=== PATIENT | male | born 1960 | race Hispanic/Latino ===

== ENCOUNTER 2020-01-10 11:00 | Inpatient (IN) | payer BC ==
[~2020-01-10] VITALS: Ht 185.4 cm; Wt 107.4 kg
[~2020-01-10 11:00] MED LIST: BISO1TAB8 PO
[2020-01-10 16:37] LABS: BASOPHILS % (AUTO) 0.7 % (0.0-5.0); EOSINOPHILS % (AUTO) 4.1 % (0.0-8.0); HEMATOCRIT 45.3 % (42-54); LYMPHOCYTES % (AUTO) 22.2 % (21.0-51.0); MEAN CORPUSCULAR HEMOGLOBIN 32.6 pg (27.0-33.0); MEAN CORPUSCULAR HGB CONC 34.2 g/dL (32.0-36.0); MEAN CORPUSCULAR VOLUME 95.2 fL (79-99); MONOCYTES % (AUTO) 7.6 % (3.0-13.0); NEUTROPHILS % (AUTO) 65.1 % (40.0-77.0); PLATELET COUNT (AUTO) 174 K/uL (130-400); RED BLOOD CELL COUNT(AUTO) 4.76 MIL/uL (4.50-6.20); RED CELL DISTRIBUTION WIDTH 11.5 % (11.0-15.5); WHITE BLOOD COUNT (AUTO) 7.5 K/uL (4.8-10.8)
[2020-01-10 16:39] LABS: APPEARANCE,URINE Clear (CLEAR); BILIRUBIN,URINE Negative (NEGATIVE); COLOR,URINE Yellow (YELLOW); GLUCOSE, URINE (UA) Negative (NEGATIVE); KETONES,URINE Negative (NEGATIVE); LEUKOCYTE ESTERASE ,URINE Negative (NEGATIVE); NITRATE,URINE Negative (NEGATIVE); OCCULT BLOOD,URINE Negative (NEGATIVE); PROTEIN,URINE Negative (NEGATIVE)
[2020-01-10 16:49] LABS: CREATININE 1.2 mg/dL (0.5-1.5); POTASSIUM 3.8 mmol/L (3.5-5.1)
[2020-01-10 16:52] LABS: INR 1.02 (0.85-1.15); PARTIAL THROMBOPLASTIN TIME 28.2 SEC (26.3-35.5)
[2020-01-11 08:35] VITALS: BP 132/65
[2020-01-14] VITALS (22 sets, daily range): BP systolic 113–147; BP diastolic 59–78
[2020-01-14] MEDS: CEFAZOLIN SODIUM 1 GM VIAL IVP SCH ×4 (05:00→20:05)
[2020-01-14] MEDS ORDERED: LACTATED RINGERS 1000ML 1,000 ML IV ONE (07:15)
[2020-01-14] MEDS ORDERED: KETOROLAC TROMETHAMINE 15MG/ML ONE (08:32)
[2020-01-14] MEDS ORDERED: ACETAMINOPHEN EXTRA STRENGTH 500 MG TABLET ONE (08:32)
[2020-01-14] MEDS ORDERED: TRANEXAMIC ACID 1000MG/10ML ONE ×2 (08:33→12:31)
[2020-01-14] MEDS ORDERED: CELECOXIB 200 MG CAP ONE (08:33)
[2020-01-14] MEDS ORDERED: CEFAZOLIN SODIUM 1 GM VIAL ONE (09:22)
[2020-01-14] MEDS ORDERED: LIDOCAINE PF 2% 5ML ABBOJECT ONE (09:41)
[2020-01-14] MEDS ORDERED: SUCCINYLCHOLINE CHLORIDE 20 MG/ML 10 ML VIAL ONE (09:41)
[2020-01-14] MEDS ORDERED: ROCURONIUM 10MG/1ML SYR 10 MG/ML ML ONE (09:41)
[2020-01-14] MEDS ORDERED: PROPOFOL 10 MG/ML 20ML VIAL IV ONE (09:41)
[2020-01-14] MEDS ORDERED: MIDAZOLAM HCL 1 MG/ML 2ML VIAL ONE (09:41)
[2020-01-14] MEDS ORDERED: FENTANYL CITRATE PF 50 MCG/1 ML 2ML VIAL ONE ×2 (09:45→11:33)
[2020-01-14] MEDS ORDERED: EPHEDRINE SULFATE 50 MG/ML AMPULE ONE (10:06)
[2020-01-14] MEDS ORDERED: NEOSTIGMINE 5MG/5ML SYR IV ONE (10:07)
[2020-01-14] MEDS ORDERED: GLYCOPYRROLATE 1 MG/5 ML SYRINGE ONE (10:07)
[2020-01-14] MEDS ORDERED: ONDANSETRON HCL 4 MG/2 ML VIAL ONE (11:49)
[2020-01-14] MEDS ORDERED: CALCIUM CARBONATE 500 MG TABLET PO PRN (12:00)
[2020-01-14] MEDS ORDERED: OXYCODONE HCL 5 MG TAB PO PRN (12:00)
[2020-01-14] MEDS ORDERED: DiphenhydrAMINE HCL 50 MG/ML VIAL IVP PRN (12:00)
[2020-01-14] MEDS ORDERED: POTASSIUM CHLORIDE 10% ELIXIR 20 MEQ/15 ML UDCUP PO PRN (12:00)
[2020-01-14] MEDS ORDERED: POTASSIUM CHLORIDE 20 MEQ ERTAB PO PRN (12:00)
[2020-01-14] MEDS ORDERED: ONDANSETRON HCL 4 MG/2 ML VIAL IVP PRN (12:00)
[2020-01-14] MEDS ORDERED: LIDOCAINE HCL-MPF 1% 2ML VIAL IV PRN (12:00)
[2020-01-14] MEDS ORDERED: TRAMADOL HCL 50 MG TABLET PO PRN (12:00)
[2020-01-14] MEDS ORDERED: POTASSIUM CHLORIDE 20MEQ/100ML 100 ML IV PRN (12:00)
[2020-01-14] MEDS ORDERED: TEMAZEPAM 15 MG CAPSULE PO PRN (12:00)
[2020-01-14] MEDS: SODIUM CHLORIDE 0.9% 1000ML 1,000 ML IV SCH ×2 (12:00→21:22)
[2020-01-14] MEDS: ACETAMINOPHEN EXTRA STRENGTH 500 MG TABLET PO SCH ×2 (12:00→20:05)
[2020-01-14] MEDS ORDERED: FERROUS FUMARATE 324 MG TABLET PO PRN (12:00)
[2020-01-14] MEDS ORDERED: MEPERIDINE-PF 25 MG/ML SYG ONE ×2 (12:40→12:49)
--- NOTE | 2020-01-14 15:00 | NUR ---
DC PLAN VISITED WITH PATIENT. POST SURGICAL STILL HAVING SOME PAIN. BRIEF IA. PATIENT LIVES WITH SPOUSE. INDEPENDENT ABLE TO PERFORM ADL'S. WALKER WITH NO WHEELS AT HOME. OFFERED [facility] REFUSED SAID LAST KNEE WENT TO DR. ALLEN OFFICE FOR THERAPY. WANTS TO DO THAT AGAIN. LEFT MESSAGE FOR DR. ALLEN FOR ORDERS. OFFERED 3 IN 1 CHAIR. EXPLAINED INSURANCE MIGHT NO COVER. OKAY TO USE ANY IN NETWORK DME. WILL SEND REFERRAL TO [facility]. Addendum: 01/14/20 at 1503 by VIRGINIE ANDRES RN CM Amended: Links added.
[2020-01-14] MEDS ORDERED: IPRATROPIUM/ALBUTEROL SULFATE 3 ML SOLUTION IH ONE (18:46)
[2020-01-14] MEDS: CELECOXIB 200 MG CAP PO SCH (20:06)
[2020-01-14] MEDS: FAMOTIDINE 20MG TAB 20 MG TAB PO SCH (20:06)
[2020-01-14] MEDS: PREGABALIN 25 MG CAP PO SCH (20:06)
[2020-01-14] MEDS: ASPIRIN 81MG TAB.CHEW PO SCH (20:07)
[2020-01-14] MEDS: OXYCODONE HCL 5 MG TAB PO PRN (20:13)
[2020-01-14] MEDS: KETOROLAC TROMETHAMINE 15MG/ML IV PRN (21:21)
[2020-01-14] MEDS ORDERED: BENZOCAINE/MENTH/CETYLPYRD CL 1 EACH LOZENGE MM PRN (21:30)
[2020-01-14] MEDS ORDERED: BENZOCAINE/MENTH/CETYLPYRD CL 1 EACH LOZENGE MM ONE (21:36)
[2020-01-14] MEDS: HYDROMORPHONE 1 MG/1 ML AMP IVP PRN ×2 (21:59→23:49)
[2020-01-15 00:28] VITALS: BP 130/68
--- NOTE | 2020-01-15 01:20 | NUR ---
DANGLE PATIENT ASSISTED TO EDGE OF BED TO DANGLE LEGS PER PROTOCOL. PATIENT TOLERATED WELL.
[2020-01-15] MEDS: HYDROMORPHONE 1 MG/1 ML AMP IVP PRN ×2 (02:20→04:46)
[2020-01-15] MEDS: CEFAZOLIN SODIUM 1 GM VIAL IVP SCH ×2 (03:45→03:46)
[2020-01-15] MEDS: ACETAMINOPHEN EXTRA STRENGTH 500 MG TABLET PO SCH ×2 (03:46→11:25)
[2020-01-15] MEDS: OXYCODONE HCL 5 MG TAB PO PRN ×3 (03:54→15:25)
[2020-01-15 04:28] VITALS: BP 106/67
[2020-01-15] MEDS: KETOROLAC TROMETHAMINE 15MG/ML IV PRN (06:11)
[2020-01-15 06:23] LABS: HEMATOCRIT 37.6 % (42-54); MEAN CORPUSCULAR HEMOGLOBIN 31.8 pg (27.0-33.0); MEAN CORPUSCULAR HGB CONC 33.8 g/dL (32.0-36.0); RED CELL DISTRIBUTION WIDTH 11.6 % (11.0-15.5); WHITE BLOOD COUNT (AUTO) 9.3 K/uL (4.8-10.8)
[2020-01-15 06:38] LABS: CREATININE 1.2 mg/dL (0.5-1.5)
[2020-01-15 08:00] VITALS: BP 130/70
[2020-01-15] MEDS: ASPIRIN 81MG TAB.CHEW PO SCH (08:39)
[2020-01-15] MEDS: PREGABALIN 25 MG CAP PO SCH (08:39)
[2020-01-15] MEDS: FAMOTIDINE 20MG TAB 20 MG TAB PO SCH (08:39)
[2020-01-15] MEDS: CELECOXIB 200 MG CAP PO SCH (08:39)
[2020-01-15] MEDS ORDERED: POLYETHYLENE GLYCOL 3350 17 GM POWD.PACK PO SCH (09:00)
[2020-01-15] MEDS ORDERED: TAMSULOSIN HCL 0.4 MG CAP.ER.24H PO SCH (09:00)
[2020-01-15] MEDS ORDERED: BISOPROLOL FUMARATE PO SCH (09:00)
[2020-01-15] MEDS ORDERED: HCTZ PO SCH (09:00)
--- NOTE | 2020-01-15 11:51 | NUR ---
DC PLAN CALLED [facility] SAID THEY RECEIVED PACKET PENDING INSURANCE AUTHORIZATION. PER PATIENT ALREADY HAS STANDARD WALKER. DID NOT WANT HOME HEALTH. DR. ALLEN SAID OKAY FOR PATIENT TO DO OUTPATIENT PT AT HIS OFFICE. CM CALLED OFFICE SAID THEY WILL GET PRE AUTHORIZATION AND CALL PATIENT ONCE APPROVED. Addendum: 01/15/20 at 1154 by VIRGINIE ANDRES RN CM Amended: Links added.
[2020-01-15 11:52] VITALS: BP 137/68
[2020-01-15 16:00] VITALS: BP 150/75
[2020-01-15] MEDS ORDERED: HYDR-4457 PO (18:27)
[2020-01-15] MEDS ORDERED: ASPI-1005 PO (18:27)
--- NOTE | 2020-01-15 18:50 | NUR ---
INSTRUCTIONS DISCHARGE INSTRUCTIONS GIVEN TO PATIENT USING TEACH BACK. F/U APPOINTMENT MADE. NEW PRESCRIPTIONS ELECTRONICALLY SENT TO PATIENT'S PREFERRED PHARMACY. IV REMOVED WITH TIP INTACT. DIRECT PRESSURE APPLIED UNTIL BLEEDING CONTROLLED THEN SITE COVERED WITH GAUZE AND SECURED WITH TAPE. NO QUESTIONS OR CONCERNS VOICED. PENDING RIDE HOME.
[2020-01-17] MEDS ORDERED: BISACODYL 10 MG SUPP.RECT RC PRN (12:00)
== END 2020-01-15 19:20 | disposition home or self-care (01) | DRG 470 ==
LOC: EDSTATUS 11:00 → DAHIP 01-14 06:15 → 3DH 01-14 12:27
PROVIDERS: ADMIT Orthopaedic Surgery; ATTEND Orthopaedic Surgery
PROC: 0SRC0J9 Replacement of Right Knee Joint with Synthetic Substitute, Cemented, Open Approach (ICD-10-PCS; principal; 2020-01-14 10:33)
PROC: 3E0T3BZ Introduction of Anesthetic Agent into Peripheral Nerves and Plexi, Percutaneous Approach (ICD-10-PCS; 2020-01-14 10:33)
DX: M17.11 Unilateral primary osteoarthritis, right knee (principal); G89.29 Other chronic pain; I25.10 Atherosclerotic heart disease of native coronary artery without angina pectoris; I10 Essential (primary) hypertension
CPT/HCPCS: 36415; 80048; 81003; 85025; 85027; 85610; 85730; 87641; 97039; G0378; J0330; J0690; J1170; J1885; J2001; J2175; J2250; J2405; J2704; J2710; J3010; J3490; J7120